=== PATIENT | female | born 1930 | race Hispanic/Latino ===

== ENCOUNTER 2020-10-26 15:45 | Inpatient (IN) | payer MEDICARE, OTHER ==
[~2020-10-26] VITALS: Ht 154.9 cm; Wt 60.4 kg
[2020-10-26] MEDS ORDERED: SODIUM CHLORIDE 0.9% 500ML 500 ML IV STA (18:25)
[2020-10-26] MEDS ORDERED: ONDANSETRON HCL INJ 2MG/ML 2ML 2 MG/ML VIAL IV PRN (18:30)
[2020-10-26] MEDS ORDERED: SODIUM CHLORIDE FLUSH 10 ML SYR INJ PRN (18:30)
[2020-10-26] MEDS ORDERED: CEFTRIAXONE SOD 1 GM VIAL ONE (18:38)
[2020-10-26] MEDS ORDERED: SODIUM CHLORIDE 0.9% 500ML 500 ML ONE (18:38)
[2020-10-26] MEDS: CEFTRIAXONE SOD 1 GM 50 ML IV SCH (18:44)
[2020-10-26] MEDS: SODIUM CHLORIDE 0.9% 1000ML 1,000 ML IV SCH (19:55)
[2020-10-26] MEDS ORDERED: SODIUM CHLORIDE 0.9% 1000ML 1,000 ML ONE (19:58)
[2020-10-26 20:00] VITALS: BP 130/57
[2020-10-26 20:44] VITALS: BP 130/57
[2020-10-26] MEDS ORDERED: ROSUVASTATIN CA10 MG PO (20:45)
[2020-10-26] MEDS ORDERED: TRESIBA FL200 UNIT/1 SQ (20:45)
[2020-10-26] MEDS ORDERED: RISEDRONATE SOD35 MG PO (20:45)
[2020-10-26] MEDS ORDERED: JANUMET XR 50-1 EACH PO (20:45)
[2020-10-26] MEDS ORDERED: AMLODIPINE-BEN1 EAC4 PO (20:45)
[2020-10-26] MEDS ORDERED: POTASSIUM CHLORIDE 20 MEQ TAB CR PO STA (23:31)
[2020-10-26] MEDS ORDERED: DEXTROSE 50% SYRINGE 50 ML IV PRN (23:45)
[2020-10-27] VITALS (8 sets, daily range): BP systolic 109–127; BP diastolic 43–64
[2020-10-27] MEDS: HYDROCODONE/APAP 5MG-325MG TAB PO PRN ×3 (02:45→22:40)
[2020-10-27 05:01] LABS: CLARITY,URINE CLEAR (CLEAR); COLOR,URINE YELLOW (YELLOW); KETONES,URINE NEGATIVE (NEGATIVE); LEUKOCYTE ESTERASE ,URINE NEGATIVE (NEGATIVE); NITRITE,URINE NEGATIVE (NEGATIVE); PROTEIN,URINE DIPSTICK NEGATIVE (NEGATIVE); URINE UROBILINOGEN 0.2 mg/dL (0.2 - 1)
[2020-10-27 05:11] LABS: BACTERIA,URINE FEW /HPF; RBC,URINE 0-5 /HPF (0-5)
[2020-10-27 05:12] LABS: EPITHELIAL CELLS,URINE FEW /LPF
[2020-10-27 05:32] LABS: BASOPHILS % 0.1 % (0.0-1.0); EOSINOPHILS % 0.1 % (0.0-6.0); HEMATOCRIT 32.9 % (34.2-44.1); HEMOGLOBIN 11.4 g/dL (12.0-16.0); LYMPHOCYTES # (AUTO) 1.3 (1.0-3.2); LYMPHOCYTES % 12.3 % (18.0-39.1); MEAN CORPUSCULAR HGB CONC 34.7 g/dL (31-35); MEAN CORPUSCULAR VOLUME 83.7 fL (81-99); MONOCYTES # (AUTO) 0.6 (0.2-0.8); MONOCYTES % 5.6 % (4.4-11.3); NEUTROPHILS # (AUTO) 8.7 (2.1-6.9); NEUTROPHILS % 81.5 % (38.7-80.0); PLATELET COUNT 244 x10e3/uL (140-360); RED BLOOD COUNT 3.93 x10e6/uL (3.6-5.1); RED CELL DISTRIBUTION WIDTH 12.8 % (11.7-14.4)
[2020-10-27 06:00] LABS: ANION GAP 14.6 mmol/L (8-16); BLOOD UREA NITROGEN 14 mg/dL (7-26); BUN/CREATININE RATIO 20 (6-25); CALCIUM 7.2 mg/dL (8.4-10.2); CARBON DIOXIDE 20 mmol/L (22-29); CHLORIDE 92 mmol/L (98-107); CREATININE, SERUM 0.71 mg/dL (0.57-1.11); EST GLOMERULAR FILTRATION RATE > 60 ML/MIN (60-); POTASSIUM 3.6 mmol/L (3.5-5.1); SODIUM 123 mmol/L (136-145)
[2020-10-27 06:02] LABS: GLUCOSE 42 mg/dL (74-118)
[2020-10-27] MEDS: SODIUM CHLORIDE 0.9% 1000ML 1,000 ML IV SCH ×2 (07:19→20:52)
[2020-10-27] MEDS: INSULIN LISPRO 100 UNIT/1 ML 3ML VIAL SQ SCH ×4 (07:30→21:35)
[2020-10-27] MEDS: AMLODIPINE BESYLATE 5 MG TAB PO SCH (09:00)
[2020-10-27] MEDS ORDERED: NON-FORMULARY MEDICATION (Amlodipine Besylate/Benazepril (Amlodipine-Benazepril 5-40 Mg) 1 PO SCH (09:00)
[2020-10-27] MEDS: BENAZEPRIL HCL 10 MG TAB PO SCH (09:00)
[2020-10-27 09:30] LABS: INR 0.94; PROTHROMBIN TIME 13.1 seconds (11.9-14.5)
[2020-10-27 09:31] LABS: PARTIAL THROMBOPLASTIN TIME 33.2 seconds (23.8-35.5)
[2020-10-27] MEDS ORDERED: MAGNESIUM SULFATE 2GM/50ML 50 ML IV ONE (18:50)
[2020-10-27] MEDS ORDERED: FUROSEMIDE INJ 10 MG/ML 2 ML VIAL IV ONE (18:50)
[2020-10-27 18:52] LABS: BLOOD UREA NITROGEN 10 mg/dL (7-26); GLUCOSE 112 mg/dL (74-118); OSMOLALITY,SERUM 255 mOsm/kg (278-305); SODIUM 127 mmol/L (136-145)
[2020-10-27] MEDS: CRESTOR 10MG PO SCH (20:20)
[2020-10-27] MEDS: CEFTRIAXONE SOD 1 GM 50 ML IV SCH (20:20)
[2020-10-28] VITALS (8 sets, daily range): BP systolic 104–121; BP diastolic 46–88
[2020-10-28] MEDS: INSULIN LISPRO 100 UNIT/1 ML 3ML VIAL SQ SCH ×4 (07:30→19:50)
[2020-10-28] MEDS: AMLODIPINE BESYLATE 5 MG TAB PO SCH (09:14)
[2020-10-28] MEDS: BENAZEPRIL HCL 10 MG TAB PO SCH (09:15)
[2020-10-28] MEDS: SODIUM CHLORIDE 0.9% 1000ML 1,000 ML IV SCH (09:15)
[2020-10-28 09:23] LABS: ANION GAP 10.8 mmol/L (8-16); BLOOD UREA NITROGEN 9 mg/dL (7-26); BUN/CREATININE RATIO 14 (6-25); CALCIUM 7.3 mg/dL (8.4-10.2); CARBON DIOXIDE 23 mmol/L (22-29); CHLORIDE 97 mmol/L (98-107); CREATININE, SERUM 0.64 mg/dL (0.57-1.11); EST GLOMERULAR FILTRATION RATE > 60 ML/MIN (60-); GLUCOSE 73 mg/dL (74-118); POTASSIUM 3.8 mmol/L (3.5-5.1); SODIUM 127 mmol/L (136-145)
[2020-10-28] MEDS: HYDROCODONE/APAP 5MG-325MG TAB PO PRN ×2 (11:20→21:30)
[2020-10-28] MEDS: CEFTRIAXONE SOD 1 GM 50 ML IV SCH (16:55)
[2020-10-28] MEDS: CRESTOR 10MG PO SCH (21:30)
[2020-10-29] VITALS (9 sets, daily range): BP systolic 103–131; BP diastolic 43–62
[2020-10-29 06:59] LABS: ANION GAP 12.9 mmol/L (8-16); BLOOD UREA NITROGEN 9 mg/dL (7-26); BUN/CREATININE RATIO 14 (6-25); CALCIUM 7.5 mg/dL (8.4-10.2); CARBON DIOXIDE 23 mmol/L (22-29); CHLORIDE 98 mmol/L (98-107); CREATININE, SERUM 0.63 mg/dL (0.57-1.11); EST GLOMERULAR FILTRATION RATE > 60 ML/MIN (60-); GLUCOSE 81 mg/dL (74-118); POTASSIUM 3.9 mmol/L (3.5-5.1); SODIUM 130 mmol/L (136-145)
[2020-10-29] MEDS: INSULIN LISPRO 100 UNIT/1 ML 3ML VIAL SQ SCH ×4 (07:30→21:00)
[2020-10-29] MEDS: HYDROCODONE/APAP 5MG-325MG TAB PO PRN ×3 (08:40→20:13)
[2020-10-29] MEDS: BENAZEPRIL HCL 10 MG TAB PO SCH (08:41)
[2020-10-29] MEDS: AMLODIPINE BESYLATE 5 MG TAB PO SCH (08:41)
[2020-10-29] MEDS: SODIUM CHLORIDE 1 GM TAB PO SCH (08:41)
[2020-10-29] MEDS: CEFTRIAXONE SOD 1 GM 50 ML IV SCH (19:15)
[2020-10-29] MEDS: CRESTOR 10MG PO SCH (20:13)
[2020-10-30] VITALS (7 sets, daily range): BP systolic 100–133; BP diastolic 40–59
[2020-10-30 06:08] LABS: ANION GAP 10.2 mmol/L (8-16); BLOOD UREA NITROGEN 13 mg/dL (7-26); BUN/CREATININE RATIO 19 (6-25); CARBON DIOXIDE 28 mmol/L (22-29); CHLORIDE 98 mmol/L (98-107); CREATININE, SERUM 0.67 mg/dL (0.57-1.11); EST GLOMERULAR FILTRATION RATE > 60 ML/MIN (60-); GLUCOSE 174 mg/dL (74-118); POTASSIUM 4.2 mmol/L (3.5-5.1); SODIUM 132 mmol/L (136-145)
[2020-10-30] MEDS: INSULIN LISPRO 100 UNIT/1 ML 3ML VIAL SQ SCH ×4 (07:30→21:00)
[2020-10-30] MEDS: HYDROCODONE/APAP 5MG-325MG TAB PO PRN ×3 (08:18→20:48)
[2020-10-30] MEDS: AMLODIPINE BESYLATE 5 MG TAB PO SCH (09:00)
[2020-10-30] MEDS: BENAZEPRIL HCL 10 MG TAB PO SCH (09:00)
[2020-10-30] MEDS: SODIUM CHLORIDE 1 GM TAB PO SCH (09:00)
[2020-10-30] MEDS: CRESTOR 10MG PO SCH (20:48)
[2020-10-31] VITALS (8 sets, daily range): BP systolic 107–126; BP diastolic 41–56
[2020-10-31] MEDS: HYDROCODONE/APAP 5MG-325MG TAB PO PRN ×3 (04:00→20:25)
[2020-10-31] MEDS: INSULIN LISPRO 100 UNIT/1 ML 3ML VIAL SQ SCH ×4 (07:30→21:00)
[2020-10-31] MEDS: BENAZEPRIL HCL 10 MG TAB PO SCH (09:36)
[2020-10-31] MEDS: AMLODIPINE BESYLATE 5 MG TAB PO SCH (09:43)
[2020-10-31] MEDS: SODIUM CHLORIDE 1 GM TAB PO SCH (09:43)
[2020-10-31] MEDS: CRESTOR 10MG PO SCH (20:26)
[2020-11-01] VITALS (9 sets, daily range): BP systolic 114–135; BP diastolic 51–69
[2020-11-01] MEDS: HYDROCODONE/APAP 5MG-325MG TAB PO PRN (01:35)
[2020-11-01 06:23] LABS: ANION GAP 11.1 mmol/L (8-16); BLOOD UREA NITROGEN 19 mg/dL (7-26); BUN/CREATININE RATIO 25 (6-25); CALCIUM 8.9 mg/dL (8.4-10.2); CARBON DIOXIDE 30 mmol/L (22-29); CHLORIDE 97 mmol/L (98-107); CREATININE, SERUM 0.75 mg/dL (0.57-1.11); EST GLOMERULAR FILTRATION RATE > 60 ML/MIN (60-); GLUCOSE 224 mg/dL (74-118); SODIUM 133 mmol/L (136-145)
[2020-11-01 06:52] LABS: POTASSIUM 5.1 mmol/L (3.5-5.1)
[2020-11-01] MEDS: INSULIN LISPRO 100 UNIT/1 ML 3ML VIAL SQ SCH ×3 (07:30→16:30)
[2020-11-01] MEDS ORDERED: LACTATED RINGER'S 1,000 ML ONE (08:26)
[2020-11-01] MEDS ORDERED: LIDOCAINE HCL 1% LOCAL INJ 20 ML VIAL ONE (08:34)
[2020-11-01] MEDS ORDERED: SODIUM CHLORIDE 0.9% 250ML 250 ML ONE (08:34)
[2020-11-01] MEDS: BENAZEPRIL HCL 10 MG TAB PO SCH (12:33)
[2020-11-01] MEDS: SODIUM CHLORIDE 1 GM TAB PO SCH (12:33)
[2020-11-01] MEDS: AMLODIPINE BESYLATE 5 MG TAB PO SCH (12:33)
[2020-11-01] MEDS ORDERED: FENTANYL CITRATE/PF 100MCG/2 ML INJ ONE (12:54)
[2020-11-01] MEDS ORDERED: NEOSTIGMINE 1 MG/ML 10ML VIAL ONE (13:27)
[2020-11-01] MEDS ORDERED: PHENYLEPHRINE HCL 1% 10 MG/ML VIAL ONE (13:27)
[2020-11-01] MEDS ORDERED: CEFAZOLIN SOD 1 GM VIAL ONE (13:27)
[2020-11-01] MEDS ORDERED: ONDANSETRON HCL INJ 2MG/ML 2ML 2 MG/ML VIAL ONE (13:27)
[2020-11-01] MEDS ORDERED: SEVOFLURANE INHAL SOLN 250 ML PEN BTL ONE (13:27)
[2020-11-01] MEDS ORDERED: GLYCOPYRROLATE INJ 0.2 MG/ML VIAL ONE (13:27)
[2020-11-01] MEDS ORDERED: PROPOFOL IV EMULSION 10 MG/ML 20 ML VIAL ONE (13:27)
[2020-11-01] MEDS ORDERED: DEXAMETHASONE SOD PHOS INJ 4 MG/ML VIAL ONE (13:27)
[2020-11-01] MEDS ORDERED: LIDOCAINE HCL 2% LOCAL INJ 5 ML SDV VIAL INJ ONE (13:27)
[2020-11-01] MEDS ORDERED: ROCURONIUM BROMIDE 10 MG/ML 5ML VIAL IV ONE (13:27)
[2020-11-01] MEDS ORDERED: HYDROCODON-ACE1 EA11 PO (14:31)
[2020-11-01] MEDS ORDERED: ONDANSETRON ODT4 MG PO (14:31)
[2020-11-01] MEDS ORDERED: SODIUM CHLORIDE1 GM PO (14:31)
[2020-11-02] MEDS ORDERED: SODIUM CHLORIDE 1 GM TAB PO SCH (09:00)
== END 2020-11-01 20:15 | DRG 516 ==
LOC: FSED 16:15 → ERHOLD 18:23 → MED/SURG2 20:44
PROVIDERS: ADMIT Internal Medicine; ATTEND Internal Medicine
PROC: 0PU43JZ Supplement Thoracic Vertebra with Synthetic Substitute, Percutaneous Approach (ICD-10-PCS; principal; 2020-11-01 09:00)
DX: S22.080A Wedge compression fracture of T11-T12 vertebra, initial encounter for closed fracture (principal); E87.1 Hypo-osmolality and hyponatremia; N39.0 Urinary tract infection, site not specified; D64.9 Anemia, unspecified; E11.65 Type 2 diabetes mellitus with hyperglycemia; E83.42 Hypomagnesemia; E83.52 Hypercalcemia; I10 Essential (primary) hypertension; W19.XXXA Unspecified fall, initial encounter; S81.801A Unspecified open wound, right lower leg, initial encounter; E86.0 Dehydration; R33.9 Retention of urine, unspecified; N31.9 Neuromuscular dysfunction of bladder, unspecified; I72.8 Aneurysm of other specified arteries
CPT/HCPCS: 22513; 36415; 71046; 72100; 72146; 74176; 74470; 80048; 80053; 81001; 82947; 82948; 83735; 83935; 84295; 84520; 85025; 85610; 85730; 87086; 93005; 93306; 96361; 96375; 97139; 99251; 99284; J0690; J0696; J1100; J1940; J2001; J2370; J2405; J2710; J3010; J3475; J7030; J7040; J7050; J7121; U0002